=== PATIENT | female | born 1960 | race Caucasian/White ===

== ENCOUNTER 2017-12-28 08:26 | Day surgery (SDC) | payer OTHER ==
[~2017-12-28] VITALS: Ht 162.6 cm; Wt 56.7 kg
[~2017-12-28 08:26] MED LIST: CIPRO500 MG PO; MAGIC MOUTHWASH1 ML MM; SILVADENE20 GM TP
[2017-12-28 09:22] VITALS: BP 156/86
[2017-12-28 09:28] VITALS: BP 156/86
[2017-12-28 12:43] VITALS: BP 186/99
[2017-12-28 13:01] VITALS: BP 166/84
[2017-12-28 13:31] VITALS: BP 168/81
== END 2017-12-28 13:45 | disposition home or self-care (01) ==
LOC: SDC 08:26
PROC: 0SGM04Z Fusion of Right Metatarsal-Phalangeal Joint with Internal Fixation Device, Open Approach (ICD-10-PCS; principal; 2017-12-28)
DX: M20.11 Hallux valgus (acquired), right foot (principal); M20.41 Other hammer toe(s) (acquired), right foot; M24.574 Contracture, right foot; M79.671 Pain in right foot; Z88.6 Allergy status to analgesic agent
CPT/HCPCS: C1769; J0690; J2250; J3010; S0020